=== PATIENT | male | born 1940 | race Caucasian/White ===

== ENCOUNTER 2023-02-07 18:38 | Emergency (ER) | payer MEDICARE, OTHER ==
[~2023-02-07] VITALS: Ht 157.5 cm; Wt 59.9 kg
[~2023-02-07 18:38] MED LIST: DIPH1TAB PO; DONE10TA44 PO; ESCI10TA PO; IBUP-23 PO; LATA2.5D15 OP; LORA2VIA11 IV; MELO-107 PO; OMEP20CA15 PO; QUET25TA PO; SENN-261 PO; THIA100T13 PO
[2023-02-07] MEDS ORDERED: TDAP [DIPH/PERTUSSIS/TET] 0.5 ML VIAL IM ONE ×2 (18:58→19:00)
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
--- NOTE | 2023-02-07 20:11 | NUR ---
SON IS COMING TO SCREW MACHINE HAND. ETA 40 MIN - 2100
--- NOTE | 2023-02-07 20:50 | NUR ---
PT'S BP HIGH UPON DISCHARGE. PT'S SON STATED HE WILL MEDICATE PT WHEN HE IS AT HOME. PT AMBULATORY WITH STEADY GAIT.
[2023-02-07 21:30] VITALS: BP 172/73
== END 2023-02-07 20:51 | disposition home or self-care (01) ==
LOC: ER 18:39
DX: S01.111A Laceration without foreign body of right eyelid and periocular area, initial encounter (principal); R51.9 Headache, unspecified; M54.2 Cervicalgia; I10 Essential (primary) hypertension; F10.10 Alcohol abuse, uncomplicated; F17.200 Nicotine dependence, unspecified, uncomplicated; Z79.899 Other long term (current) drug therapy; W18.30XA Fall on same level, unspecified, initial encounter; Y93.89 Activity, other specified; Y92.89 Other specified places as the place of occurrence of the external cause; Y99.8 Other external cause status; Y90.9 Presence of alcohol in blood, level not specified
CPT/HCPCS: 70450-TC; 72125-TC; 90715

== ENCOUNTER 2023-09-18 16:36 | Emergency (ER) | payer MEDICARE, OTHER ==
[~2023-09-18] VITALS: Ht 167.6 cm; Wt 64.0 kg
[2023-09-18 17:31] VITALS: BP 142/86; TEMP 98.2; O2SAT 100
== END 2023-09-18 17:32 | disposition home or self-care (01) ==
LOC: ER 16:39
DX: Z00.00 Encounter for general adult medical examination without abnormal findings (principal); F17.200 Nicotine dependence, unspecified, uncomplicated; Z79.899 Other long term (current) drug therapy